=== PATIENT | male | born 1985 | race Caucasian/White ===

== ENCOUNTER 2016-09-27 07:07 | Emergency (ER) | payer OTHER ==
[~2016-09-27] VITALS: Ht 182.9 cm; Wt 123.3 kg
[2016-09-27 07:08] VITALS: BP 142/106
[2016-09-27] MEDS ORDERED: HYDROcodone/APAP 5/325 TABLET ONE (07:55)
[2016-09-27] MEDS ORDERED: HYDROcodone/APAP 5/325 TABLET PO ONE (08:00)
== END 2016-09-27 08:49 | disposition home or self-care (01) ==
LOC: ED 07:45
DX: M25.531 Pain in right wrist (principal)